=== PATIENT | female | born 1975 | race Caucasian/White ===

== ENCOUNTER → 2016-08-26 | Outpatient (CLI) | payer MEDICAID | LOC: FIMAGING 12:10 | DX: Z12.31 Encounter for screening mammogram for malignant neoplasm of breast (principal) | CPT/HCPCS: G0202 ==

== ENCOUNTER 2016-10-22 21:42 | Emergency (ER) | payer MEDICAID ==
[2016-10-22] MEDS ORDERED: IPRATROPIUM/ALBUTEROL 3 ML DEYVIAL ONE (21:50)
[2016-10-22 21:56] VITALS: BP 148/100; PULSE 87; RESP 20; TEMP 98.2; O2SAT 97
[2016-10-22] MEDS ORDERED: IPRATROPIUM/ALBUTEROL 3 ML DEYVIAL IH ONE (21:56)
[2016-10-22] MEDS ORDERED: predniSONE 20 MG TAB PO ONE (22:14)
--- NOTE | 2016-10-22 22:19 | EDPHY ---
H & P Stated Complaint: Asthma Exacerbation Time Seen by Provider: 10/22/16 22:07 HPI/ROS: Chief complaint: Asthma exacerbation History of present illness: This is a 40-year-old female with a lifelong history of asthma who presents to the emergency department concerned she is having an exacerbation. Patient reports she has been sick with cold symptoms for the last few days. She feels that this is exacerbating the asthma as she is no longer responding to home therapy. She reports increasing shortness of breath and wheezing. She denies other associated signs or symptoms. She has never been hospitalized or needed advanced airway management for asthma before. Again this is a typical exacerbation. Review of systems: A 10 point review of systems was obtained and other than described above was negative - Personal History Current Tetanus Diphtheria and Acellular Pertussis (TDAP): Yes Tetanus Vaccine Date: 2013 - Medical/Surgical History Hx Asthma: No Hx Chronic Respiratory Disease: No Hx Diabetes: No Hx Cardiac Disease: No Hx Renal Disease: No Hx Cirrhosis: No Hx Alcoholism: No Hx HIV/AIDS: No Hx Splenectomy or Spleen Trauma: No Other PMH: C SECTION X 1, Asthma - Social History Smoking Status: Never smoked - Physical Exam Exam: General Appearance: Alert and no distress. Eyes: Pupils equal and round no injection. ENT: Tympanic membranes, external auditory canals, external ears and surrounding soft tissue including over the mastoids are unremarkable. Nasopharynx is not injected. There is no rhinorrhea. Oropharynx is mildly injected. There is no edema. There is no exudate. There is no asymmetry. The uvula is midline. No elevation of the tongue. There is no hoarseness, no drooling, no trismus, no stridor. Respiratory: Patient is talking in full sentences. There is no use of accessary muscles or evidence of respiratory distress. Diffuse expiratory wheezing. No rhonchi or rales. Cardiac: regular rate and rhythm Gastrointestinal: Abdomen is soft and non tender, no masses, bowel sounds normal. Musculoskeletal: Neck is supple and non tender. Extremities have full range of motion and are non tender. Skin: No rashes or lesions. Neurological: Alert and oriented x4. Strength and sensation intact and symmetrical. No meningismus. Constitutional: Initial Vital Signs Temperature (C) 36.8 C 10/22/16 21:54 Heart Rate 87 10/22/16 21:54 Respiratory Rate 20 10/22/16 21:54 Blood Pressure 148/100 H 10/22/16 21:54 O2 Sat (%) 97 10/22/16 21:54 O2 Delivery Mode Room Air Allergies/Adverse Reactions: No Known Allergies Allergy (Verified 08/13/13 15:29) Home Medications: Medication Instructions Recorded Ibuprofen [Motrin] 600 mg PO TID PRN #30 tab 08/14/14 Methocarbamol [Robaxin 750 mg (RX)] 750 mg PO QID PRN #20 tab 08/14/14 predniSONE 40 mg PO DAILY 3 Days 10/22/16 Medical Decision Making ED Course/Re-evaluation: Patient is seen under the supervision of my secondary supervising physician Dr. Jose Roberto Mckenzie. Patient presents to the emergency department concerned she is having an exacerbation of her asthma secondary to a cold she currently has. On presentation she is nontoxic. She is afebrile and vital signs are stable. She is given a DuoNeb and states she is feeling much better. She states she usually responds well to prednisone and is started on it. She is discharged home. Home care is discussed. She is to follow up with her primary care doctor for recheck. Return precautions are given. Patient voiced understanding and agreement with plan. Differential Diagnosis: Included but not limited to infectious pathology such as bronchitis or pneumonia , asthma exacerbation, unlikely pulmonary embolism - Data Points Medications Given: Discontinued Medications Albuterol/Ipratropium (Duoneb) 3 ml IH EDNOW ONE Stop: 10/22/16 21:57 Last Admin: 10/22/16 21:59 Dose: 3 ml Prednisone (Prednisone) 60 mg PO EDNOW ONE Stop: 10/22/16 22:15 Last Admin: 10/22/16 22:27 Dose: 60 mg Departure - Departure Disposition: Home, Routine, Self-Care Clinical Impression: Exacerbation of asthma Condition: Good Instructions: Asthma (ED) Additional Instructions: Follow-up with your primary care doctor on Tuesday for recheck If symptoms worsen or new symptoms develop return to the emergency room for recheck Referrals: Ela Givens PA [Primary Care Provider] - As per Instructions Prescriptions: predniSONE 40 mg PO DAILY 3 Days
== END 2016-10-22 22:34 | disposition home or self-care (01) ==
DX: J45.901 Unspecified asthma with (acute) exacerbation (principal)

== ENCOUNTER → 2017-09-13 | Outpatient (CLI) | payer MEDICAID | LOC: FIMAGING 13:50 | PROVIDERS: ATTEND Physician Assistant | DX: Z12.31 Encounter for screening mammogram for malignant neoplasm of breast (principal) ==

== ENCOUNTER → 2017-10-25 | Outpatient (CLI) | payer MEDICAID | LOC: CIMAGING 17:34 | PROVIDERS: ATTEND Physician Assistant | DX: D25.9 Leiomyoma of uterus, unspecified (principal); N83.201 Unspecified ovarian cyst, right side; N83.202 Unspecified ovarian cyst, left side | CPT/HCPCS: 76856-PO ==

== ENCOUNTER → 2018-02-01 | Outpatient (CLI) | payer MEDICAID ==
[~2018-02-01] MED LIST: GADOBUTROL 10 ML VIAL IVP ONE
== END ==
LOC: FIMAGING 07:53
PROVIDERS: ATTEND Physician Assistant
DX: R51 Headache (principal)
CPT/HCPCS: A9585